=== PATIENT | male | born 1980 | race Native Hawaiian/Other Pacific Islander ===

== ENCOUNTER 2017-05-22 05:06 | Emergency (ER) | payer OTHER ==
[~2017-05-22] VITALS: Ht 188 cm; Wt 77.1 kg
== END 2017-05-22 05:40 | disposition home or self-care (01) ==
LOC: ED 05:06
DX: K08.89 Other specified disorders of teeth and supporting structures (principal); K02.9 Dental caries, unspecified
CPT/HCPCS: 96372; 99282; J1885

== ENCOUNTER 2018-12-21 14:14 | Outpatient (CLI) | payer OTHER | END 2018-12-21 22:42 | disposition home or self-care (01) | LOC: RAD 14:14 | DX: M25.532 Pain in left wrist (principal) ==

== ENCOUNTER 2019-02-27 09:38 | Emergency (ER) | payer OTHER ==
[~2019-02-27] VITALS: Ht 188 cm; Wt 74.8 kg
[2019-02-27 09:45] VITALS: TEMP 98
[2019-02-27 11:42] VITALS: BP 144/74
== END 2019-02-27 11:43 | disposition home or self-care (01) ==
LOC: ED 09:38
PROC: 0HQFXZZ Repair Right Hand Skin, External Approach (ICD-10-PCS; principal; 2019-02-27)
DX: S61.210A Laceration without foreign body of right index finger without damage to nail, initial encounter (principal); W26.8XXA Contact with other sharp object(s), not elsewhere classified, initial encounter; Y92.89 Other specified places as the place of occurrence of the external cause
CPT/HCPCS: 90471; 90715; 96372; 99283; J0696

== ENCOUNTER 2019-04-20 20:29 | Emergency (ER) | payer OTHER ==
[~2019-04-20] VITALS: Ht 188 cm; Wt 74.8 kg
[2019-04-20 20:35] VITALS: TEMP 98.4
[2019-04-20 21:24] VITALS: BP 123/78
== END 2019-04-20 21:24 | disposition home or self-care (01) ==
LOC: ED 20:29
DX: S63.591A Other specified sprain of right wrist, initial encounter (principal); W18.39XA Other fall on same level, initial encounter; Y92.89 Other specified places as the place of occurrence of the external cause
CPT/HCPCS: 96372; 99283; J1885